=== PATIENT | male | born 1990 | race African-American/Black ===

== ENCOUNTER 2017-11-30 03:41 | Emergency (ER) | payer MEDICAID ==
[~2017-11-30] VITALS: Ht 180.3 cm; Wt 78.0 kg
[2017-11-30] MEDS ORDERED: SODIUM CHLORIDE 0.9% 1,000 ML IV ONE (06:56)
[2017-11-30] MEDS ORDERED: ONDANSETRON HCL 4MG/2ML INJ IV STA (06:56)
[2017-11-30 07:57] LABS: CHLORIDE 104 mEq/L (98-107)
[2017-11-30 07:58] LABS: BASOPHILS % 0.3 % (0.0-2.0); EOSINOPHILS % 0.1 % (0.0-5.0); HEMATOCRIT. 39.3 % (42.0-52.0); HEMOGLOBIN. 13.5 g/dL (14.0-18.0); LYMPHOCYTES % 16.6 % (20.0-50.0); MEAN CORPUSCULAR HEMOGLOBIN 29.9 pg (28.0-32.0); MEAN CORPUSCULAR VOLUME 86.8 fL (80.0-94.0); MEAN PLATELET VOLUME 9.2 fl (7.4-10.4); MONOCYTES % 8.6 % (2.0-8.0); NEUTROPHILS % 74.4 % (40.0-76.0); PLATELET 202 x1000/uL (130-400); RED BLOOD CELL COUNT 4.53 mill/uL (4.7-6.1); RED CELL DISTRIBUTION WIDTH 13.5 % (11.6-14.6)
[2017-11-30 08:04] LABS: INR 1.1; PROTHROMBIN TIME 10.8 sec (9.1-11.1)
[2017-11-30 08:25] VITALS: BP 108/59
[2017-11-30] MEDS ORDERED: POTASSIUM CHLORIDE 20MEQ TABLET SR PO ONE (09:15)
[2017-11-30] MEDS ORDERED: METOCLOPRAMIDE HCL 10MG/2ML VIAL IV ONE (09:15)
[2017-11-30 10:09] LABS: CLARITY URINE CLEAR (CLEAR); COLOR URINE YELLOW (YELLOW); KETONES URINE NEGATIVE (NEGATIVE); LEUKOCYTE ESTERASE URINE NEGATIVE (NEGATIVE); NITRITE URINE NEGATIVE (NEGATIVE); OCCULT BLOOD URINE NEGATIVE (NEGATIVE); PH URINE 6.5 (4.5-8.0); PROTEIN URINE NEGATIVE (NEGATIVE); SPECIFIC GRAVITY URINE 1.009 (1.005-1.030); UROBILINOGEN URINE 0.2 E.U./dL (0.2-1.0)
[2017-11-30 10:25] LABS: *AMPHETAMINES SCREEN URINE NEGATIVE (NEGATIVE)
[2017-11-30 10:26] LABS: *BARBITURATES SCREEN URINE NEGATIVE (NEGATIVE); *BENZODIAZEPINES SCREEN URINE NEGATIVE (NEGATIVE); *COCAINE SCREEN URINE NEGATIVE (NEGATIVE); METHADONE URINE SCREEN NEGATIVE (NEGATIVE); OPIATES URINE SCREEN NEGATIVE (NEGATIVE); PHENCYCLIDINE URINE SCREEN NEGATIVE (NEGATIVE)
[2017-11-30 10:27] LABS: CANNABINOID URINE SCREEN NEGATIVE (NEGATIVE)
== END 2017-11-30 10:39 | disposition home or self-care (01) ==
LOC: ER 03:52
DX: R11.2 Nausea with vomiting, unspecified (principal); E87.6 Hypokalemia; J45.909 Unspecified asthma, uncomplicated; I10 Essential (primary) hypertension; R56.9 Unspecified convulsions; Z86.73 Personal history of transient ischemic attack (TIA), and cerebral infarction without residual deficits; Z98.890 Other specified postprocedural states
CPT/HCPCS: 36415; 80053; 80305; 81003; 85025; 85610; 93005; 96361; 96374; 96375; 99285; J2405; J2765; J7030

== ENCOUNTER 2021-01-04 00:51 | Emergency (ER) | payer MEDICAID ==
[~2021-01-04] VITALS: Ht 175.3 cm; Wt 80.0 kg
[2021-01-04 00:56] VITALS: BP 138/86
[2021-01-04] MEDS ORDERED: IBUPROFEN 800MG TABLET PO ONE (01:15)
[2021-01-04] MEDS ORDERED: CLINDAMYCIN HCL 150MG CAPSULE PO SCH (06:00)
== END 2021-01-04 01:52 | disposition left against medical advice (07) ==
LOC: ER 00:51
DX: L08.89 Other specified local infections of the skin and subcutaneous tissue (principal); G40.909 Epilepsy, unspecified, not intractable, without status epilepticus; W19.XXXA Unspecified fall, initial encounter; Y93.89 Activity, other specified; Y92.488 Other paved roadways as the place of occurrence of the external cause
CPT/HCPCS: 73140; 99283

== ENCOUNTER 2021-04-13 22:35 | Emergency (ER) | payer MEDICAID ==
[~2021-04-13] VITALS: Ht 177.8 cm; Wt 78.0 kg
[2021-04-13 23:01] VITALS: BP 116/72
[2021-04-13] MEDS ORDERED: BO1 TP (23:32)
[2021-04-13] MEDS ORDERED: ALBU6.7H9 INH (23:32)
== END 2021-04-13 23:53 | disposition home or self-care (01) ==
LOC: ER 22:35
DX: Z48.00 Encounter for change or removal of nonsurgical wound dressing (principal); Z76.0 Encounter for issue of repeat prescription
CPT/HCPCS: 99283